=== PATIENT | male | born 2000 | race Two or more races ===

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

== ENCOUNTER 2024-01-10 02:03 | Emergency (ER) | payer MEDICAID ==
[~2024-01-10] VITALS: Ht 182.9 cm; Wt 69.0 kg
[2024-01-10 02:23] VITALS: O2SAT 95
[2024-01-10] MEDS: KETOROLAC 15MG/ML VIAL IM ONE (02:56)
[2024-01-10] MEDS ORDERED: LIDO700A15 TP (04:37)
[2024-01-10] MEDS ORDERED: NAPR-1176 MT (04:37)
[2024-01-10] MEDS: ACETAMINOPHEN 325MG TABLET PO ONE (04:45)
[2024-01-10 04:47] VITALS: BP 125/69; PULSE 72; RESP 18; TEMP 98.5
== END 2024-01-10 04:57 | disposition home or self-care (01) ==
LOC: ER 02:03
DX: S50.01XA Contusion of right elbow, initial encounter (principal); S80.02XA Contusion of left knee, initial encounter; R07.81 Pleurodynia; F12.10 Cannabis abuse, uncomplicated; Z90.49 Acquired absence of other specified parts of digestive tract; Z98.890 Other specified postprocedural states; V99.XXXA Unspecified transport accident, initial encounter; Y93.89 Activity, other specified; Y92.89 Other specified places as the place of occurrence of the external cause; Y99.8 Other external cause status
CPT/HCPCS: 99284; 71045; 73080; 73562; 96372; J1885